=== PATIENT | male | born 1960 | race Caucasian/White ===

== ENCOUNTER 2016-10-02 07:06 | Emergency (ER) | payer OTHER ==
[~2016-10-02 07:06] MED LIST: A/B OTIC 54 MG/15 ML AD; ECOTRIN81 MG PO; FLUTICASONE PRO60 ML INH; METOPROLOL TART50 MG PO; NITROGLYCERIN SL; PRAVASTATIN SOD10 MG PO; [UNRECOGNIZED DRUG - OTHER] SL
[2016-10-02] MEDS ORDERED: BROMFED DM COU118 M1 PO (07:28)
--- NOTE | 2016-10-02 07:29 | ED INFLUENZA/URI COMPLAINT ---
History of Present Illness General Chief Complaint: Dyspnea (COPD, CHF, Other) Stated Complaint: DIFF BREATHING,CONGESTED,POST NASAL DRIP PER PT Source: patient Exam Limitations: no limitations Vital Signs & Intake/Output Vital Signs & Intake/Output Vital Signs Date Time Temp Pulse Resp B/P B/P Pulse O2 O2 Flow FiO2 Mean Ox Delivery Rate 10/02 0723 Room Air Room Air 10/02 0709 96.7 83 16 147/99 98 Room Air Allergies Coded Allergies: MDX - Contrast Media, Iodine Relate (CONTRAST MEDIA, IODINE RELATED) ( Intermediate, RASH 02/17/15) Reconcile Medications Aspirin (Ecotrin) 81 MG ECT 1 TAB PO DAILY HEART HEALTH (Reported) Brompheniramine/Pseudoephed/Dm (Bromfed Dm Cough Syrup) 2 MG-30 MG-10 MG/5 ML SYRUP 10 ML PO Q6P PRN COUGH/COLD SYMPTOMS Metoprolol Tartrate 50 MG TAB 1 TAB PO BID HEART (Reported) Pravastatin (Pravastatin Sodium) 10 MG TAB 1 TAB PO DAILY CHOLESTEROL ( Reported) Triage Note: PT C/O CONGESTION AND POST NASAL DRIP THAT STARTED LAST NIGHT. REPORTS HAVING CHILLS LAST NIGHT WELL, AFEBRILE IN TRIAGE. Triage Nurses Notes Reviewed? yes HPI: Patient presents for evaluation of nasal congestion, postnasal drip force voice and productive cough with occasional nausea and diarrhea that began last night. Patient states he also had a brief episode of chills but denies any associated fever or recent travel. He believes his has been ill recently and she offered him a cough and cold medicine but that didn't seem to help him much. Symptoms are described as moderate, more or less constant but fluctuating in intensity and nothing seems to make it feel better. Past History Travel History Traveled to [place] past 21 day No Medical History Any Pertinent Medical History? see below for history Cardiovascular: CAD, hypertension, hyperlipidemia Hepatic: hepatitis C Endocrine: diabetes History of MRSA: No History of VRE: No History of CDIFF: No Influenza Vaccine: 02/04/15 Surgical History Surgical History: CARDIAC STENT Psychosocial History Who do you live with Spouse What is your primary language Estonian Tobacco Use: Never used Family History Family History, If Any: SISTER Relation not specified for: FH: heart disease Hx Contributory? No Review of Systems Review of Systems Constitutional: Reports: no symptoms. EENTM: Reports: see HPI. Respiratory: Reports: no symptoms. Cardiovascular: Reports: no symptoms. GI: Reports: no symptoms. Genitourinary: Reports: no symptoms. Musculoskeletal: Reports: no symptoms. Skin: Reports: no symptoms. Neurological/Psychological: Reports: no symptoms. Hematologic/Endocrine: Reports: no symptoms. Immunologic/Allergic: Reports: no symptoms. All Other Systems: Reviewed and Negative Physical Exam Physical Exam Ears, Nose, Throat: see below Comments: Gen.: Well-nourished, well-developed, no acute respiratory distress. Hoarse voice. Frequent throat clearing. Head: Normocephalic, atraumatic. Eyes: Normal inspection bilaterally Ears: Normal inspection bilaterally Nose: Normal inspection Throat/mouth : Moist mucosa , no oropharyngeal erythema or soft tissue swelling, managing secretions well Neck: Supple, full range of motion, no goiter, neutral position Heart: Regular rate and rhythm, no murmurs rubs or gallops Lungs: Clear to auscultation bilaterally with normal air entry Chest: Nontender Back: Normal range of motion Abdomen: Soft, nontender, nondistended, normal bowel sounds Extremities: Normal range of motion grossly, equal radial pulses, no cyanosis clubbing or edema Neurologic: Cranial nerves grossly intact, speech is clear Skin: warm and dry Psychiatric: Calm, cooperative, no apparent delusions or hallucinations Lymphatic: No cervical or supraclavicular lymphadenopathy Core Measures Severe Sepsis Present: No Septic Shock Present: No Progress Differential Diagnosis: influenza, pneumonia, pharyngitis, sinusitis, viral syndrome Plan of Care: sx care Initial ED EKG: none Departure Departure Disposition: HOME OR SELF CARE Condition: Stable Clinical Impression Primary Impression: Viral URI with cough Referrals: NIC KEN MD (PCP/Family) Additional Instructions: ibuprofen 600mg every 6 hours as needed for fever, chills, discomfort or muscle aches. bromfed dm as prescribed for cold symptoms. follow up with your PCP in 10 days if not improving. return if any concerns or worsening. Departure Forms: Customer Survey General Discharge Information Prescriptions: Current Visit Scripts Brompheniramine/Pseudoephed/Dm (Bromfed Dm Cough Syrup) 10 ML PO Q6P PRN COUGH/ COLD SYMPTOMS #240 ML
[2016-10-02 07:32] VITALS: BP 161/96
== END 2016-10-02 07:35 ==
LOC: ERH 07:06
DX: J06.9 Acute upper respiratory infection, unspecified (principal)

== ENCOUNTER 2016-11-10 00:58 | Emergency (ER) | payer OTHER ==
[~2016-11-10] VITALS: Ht 177.8 cm; Wt 84.4 kg
[~2016-11-10 00:58] MED LIST changes: +BROMFED DM COU118 M1 PO
--- NOTE | 2016-11-10 01:22 | ED EAR COMPLAINT ---
See Addendum History of Present Illness General Chief Complaint: General Adult Stated Complaint: RIGHT EAR PAIN, SORE THROAT Source: patient Exam Limitations: no limitations Vital Signs & Intake/Output Vital Signs & Intake/Output Vital Signs Date Time Temp Pulse Resp B/P B/P Pulse O2 O2 Flow FiO2 Mean Ox Delivery Rate 11/10 0107 97.3 82 18 156/99 98 Room Air Allergies Coded Allergies: MDX - Contrast Media, Iodine Relate (CONTRAST MEDIA, IODINE RELATED) ( Intermediate, RASH 02/17/15) Reconcile Medications Aspirin (Ecotrin) 81 MG ECT 1 TAB PO DAILY HEART HEALTH (Reported) Brompheniramine/Pseudoephed/Dm (Bromfed Dm Cough Syrup) 2 MG-30 MG-10 MG/5 ML SYRUP 10 ML PO Q6P PRN COUGH/COLD SYMPTOMS Metoprolol Tartrate 50 MG TAB 1 TAB PO BID HEART (Reported) Pravastatin (Pravastatin Sodium) 10 MG TAB 1 TAB PO DAILY CHOLESTEROL ( Reported) Triage Note: PT TO ED C/O CONTINUED RT EAR PAIN THAT GOES DOWN INTO RT SIDE OF THROAT. SEEN HERE FOR SAME 3 WEEKS AGO. 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 WAS SEEN BY DR SIDDIQUI AND WALK IN ON 11/09. HAS USED TH E EAR DROPS THE ONE TIME 4 HRS AGO Triage Nurses Notes Reviewed? yes (FENG MEDINA,KAIA VALERIO) Past History Travel History Traveled to [place] past 21 day No Medical History Cardiovascular: CAD, hypertension, hyperlipidemia Hepatic: hepatitis C Endocrine: diabetes History of MRSA: No History of VRE: No History of CDIFF: No Surgical History Surgical History: CARDIAC STENT Psychosocial History Who do you live with Spouse What is your primary language Divehi Tobacco Use: Quit >30 days ago ETOH Use: denies use Illicit Drug Use: denies illicit drug use Family History Family History, If Any: SISTER Relation not specified for: FH: heart disease (FENG MEDINA,KAIA VALERIO) Progress Plan of Care: Current Medications Sig/Lorna Start time Last Medication Dose Stop Time Status Admin Clindamycin 300 MG ONCE ONE 11/10 129 UNVr (Cleocin 150MG Cap) 11/10 130 Departure Departure Condition: Stable Referrals: NIC KEN MD (PCP/Family) Departure Forms: Customer Survey General Discharge Information (FENG MEDINA,KAIA VALERIO)
[2016-11-10 01:25] VITALS: BP 150/94
[2016-11-10] MEDS ORDERED: CLEOCIN HCL300 M1 PO (01:27)
--- NOTE | 2016-11-10 01:27 | ED THROAT/DENTAL COMPLAINT ---
History of Present Illness General Chief Complaint: General Adult Stated Complaint: RIGHT EAR PAIN, SORE THROAT Source: patient, old records Exam Limitations: no limitations Vital Signs & Intake/Output Vital Signs & Intake/Output Vital Signs Date Time Temp Pulse Resp B/P B/P Pulse O2 O2 Flow FiO2 Mean Ox Delivery Rate 11/10 0125 150/94 11/10 0107 97.3 82 18 156/99 98 Room Air Allergies Coded Allergies: MDX - Contrast Media, Iodine Relate (CONTRAST MEDIA, IODINE RELATED) ( Intermediate, RASH 02/17/15) Reconcile Medications Aspirin (Ecotrin) 81 MG ECT 1 TAB PO DAILY HEART HEALTH (Reported) Brompheniramine/Pseudoephed/Dm (Bromfed Dm Cough Syrup) 2 MG-30 MG-10 MG/5 ML SYRUP 10 ML PO Q6P PRN COUGH/COLD SYMPTOMS Clindamycin HCl (Cleocin HCl) 300 MG CAPSULE 1 CAP PO TID PHARYNGITIS Metoprolol Tartrate 50 MG TAB 1 TAB PO BID HEART (Reported) Pravastatin (Pravastatin Sodium) 10 MG TAB 1 TAB PO DAILY CHOLESTEROL ( Reported) Triage Note: PT TO ED C/O CONTINUED RT EAR PAIN THAT GOES DOWN INTO RT SIDE OF THROAT. SEEN HERE FOR SAME 3 WEEKS AGO. 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 WAS SEEN BY DR SIDDIQUI AND WALK IN ON 11/09. HAS USED TH E EAR DROPS THE ONE TIME 4 HRS AGO Triage Nurses Notes Reviewed? yes HPI: Patient presents with a continued sore throat, pain around his right upper tooth , sinus congestion and ear pain. Symptoms weren't going on for 3 weeks. Patient was seen in the emergency department as well as by his primary care physician. Patient finished a course of Z-Dmitriy. Patient states he had been having fusion chills and low use that Z-Dmitriy however the other symptoms continue. There is no difficulty breathing or swallowing. The pain is constant. There is no aggravating or mitigating factors. Patient could not tell if the pain starts one area and then spread to go from there or if the pain is just diffuse in an up itself. The pain is aching and popping in nature. He rates the pain as 8 out of 10. Patient states that 2 days ago as began have decreased hearing in his right ear. Patient was again seen and diagnosed with otitis externa and put on Ciprodex. Patient use Ciprodex for the first time 4 hours ago and it has not helped opinion. Because back to the emergency room for reevaluation. Past History Travel History Traveled to [place] past 21 day No Medical History Any Pertinent Medical History? see below for history Cardiovascular: CAD, hypertension, hyperlipidemia Hepatic: hepatitis C Endocrine: diabetes History of MRSA: No History of VRE: No History of CDIFF: No Surgical History Surgical History: CARDIAC STENT Psychosocial History Who do you live with Spouse What is your primary language Burmese Tobacco Use: Quit >30 days ago ETOH Use: denies use Illicit Drug Use: denies illicit drug use Family History Family History, If Any: SISTER Relation not specified for: FH: heart disease Hx Contributory? No Review of Systems Review of Systems Constitutional: Reports: no symptoms. EENTM: Reports: see HPI, ear pain, nasal pain, throat pain, mouth pain, tooth pain. Respiratory: Reports: no symptoms. Cardiovascular: Reports: no symptoms. GI: Reports: no symptoms. Musculoskeletal: Reports: no symptoms. Neurological/Psychological: Reports: no symptoms. Immunologic/Allergic: Reports: no symptoms. Physical Exam Physical Exam General Appearance: well developed/nourished, alert, awake Head: atraumatic, normal appearance Eyes: Bilateral: PERRL, EOMI. Ears: Left: canal normal, Tympanic normal. Right: erythema, tenderness. Nose: normal inspection Mouth/Throat: BROKEN TOOTH RIGHT UPPER Neck: lymphadenopathy (R) Cardiovascular/Respiratory: normal breath sounds, normal peripheral pulses, regular rate/rhythm, no respiratory distress Neurologic/Psych: no motor/sensory deficits, awake, alert, oriented x 3, normal gait, normal mood/affect Core Measures ACS in differential dx? No Severe Sepsis Present: No Septic Shock Present: No Progress Differential Diagnosis: carious tooth, epiglottitis, odontogenic abscess, strep pharyngitis, tooth fracture, OTITIS EXTERNA Plan of Care: Orders Procedure Date/time Status THROAT CULTURE W/QUICK STREP 11/10 126 Active Current Medications Sig/Lorna Start time Last Medication Dose Stop Time Status Admin Clindamycin 300 MG ONCE ONE 11/10 129 AC (Cleocin 150MG Cap) 11/10 130 Departure Departure Disposition: HOME OR SELF CARE Condition: Stable Clinical Impression Primary Impression: Pharyngitis Qualifiers: Pharyngitis/tonsillitis etiology: unspecified etiology Qualified Code: J02.9 - Acute pharyngitis, unspecified Secondary Impressions: Broken tooth Qualifiers: Encounter type: initial encounter Fracture type: closed Qualified Code: S02.5XXA - Fracture of tooth (traumatic), initial encounter for closed fracture Otitis externa Qualifiers: Otitis externa type: unspecified type Chronicity: acute Laterality: right Qualified Code: H60.501 - Unspecified acute noninfective otitis externa, right ear Referrals: NIC KEN MD (PCP/Family) Additional Instructions: FOLLOW UP WITH DR. KEN RETURN FOR ANY CONCERNS Departure Forms: Customer Survey General Discharge Information Prescriptions: Current Visit Scripts Clindamycin HCl (Cleocin HCl) 1 CAP PO TID #21 CAP
== END 2016-11-10 01:55 ==
LOC: ERH 00:58
DX: S02.5XXA Fracture of tooth (traumatic), initial encounter for closed fracture (principal); J02.9 Acute pharyngitis, unspecified; H60.91 Unspecified otitis externa, right ear; X58.XXXA Exposure to other specified factors, initial encounter

== ENCOUNTER 2017-12-07 13:50 | Emergency (ER) | payer OTHER ==
[~2017-12-07] VITALS: Ht 177.8 cm; Wt 83.9 kg
[~2017-12-07 13:50] MED LIST changes: +CLEOCIN HCL300 M1 PO
[2017-12-07 13:55] VITALS: BP 155/95
--- NOTE | 2017-12-07 14:10 | ED UPPER/LOWER EXTREMITY COMPL ---
History of Present Illness General Chief Complaint: Lower Extremity Problems Stated Complaint: LIZETTE KNEE PAIN Source: patient Exam Limitations: no limitations Vital Signs & Intake/Output Vital Signs & Intake/Output Vital Signs Date Time Temp Pulse Resp B/P B/P Pulse O2 O2 Flow FiO2 Mean Ox Delivery Rate 12/07 1355 97.0 82 20 155/95 98 Room Air Allergies Coded Allergies: Iodinated Contrast- Oral and IV Dye (Intermediate, RASH 12/07/17) Reconcile Medications Aspirin (Ecotrin) 81 MG ECT 1 TAB PO DAILY HEART HEALTH (Reported) Brompheniramine/Pseudoephed/Dm (Bromfed Dm Cough Syrup) 2 MG-30 MG-10 MG/5 ML SYRUP 10 ML PO Q6P PRN COUGH/COLD SYMPTOMS Clindamycin HCl (Cleocin HCl) 300 MG CAPSULE 1 CAP PO TID PHARYNGITIS Metoprolol Tartrate 50 MG TAB 1 TAB PO BID HEART (Reported) Pravastatin (Pravastatin Sodium) 10 MG TAB 1 TAB PO DAILY CHOLESTEROL ( Reported) Triage Note: PT C/O BILATERAL KNEE PAIN X 3 WEEKS. PT DENIES INJURY. PAIN GETS WORSE THROUGHOUT THE DAY. PT STATES KNEES CLICK AND POP Triage Nurses Notes Reviewed? yes Onset: Gradual Duration: week(s): Timing: recent history Severity: moderate Pain/Injury Location: Bilateral: Knee. HPI: 57yo male with PMH of HTN, DM, lumbar arthritis c/o bilateral knee pain. For the past 3 weeks, pt has had bilteral knee pain that has been increasing in intensity. Pt reports that pain initially started in the medial aspect of his knees and the pain has progressed to wrap around the circumference of the knees bilaterally. Reports that he feels fine for the first 30 minutes in the AM, but pain worsens as day progresses. When standing, pain feels like knives stabbing his knees; while sitting pain feels tight and sore. Pt has increased pain with ambulation. Denies any edema, numbess, tingling, rashes, open sores. Denies any insect bites, but sleeps with his dog. Denies any trauma, strenous exercise. (Coby LOPEZ,Martha Garay) Past History Travel History Traveled to [place] past 21 day No Medical History Any Pertinent Medical History? see below for history Cardiovascular: CAD, hypertension, hyperlipidemia Hepatic: hepatitis C Endocrine: diabetes History of MRSA: No History of VRE: No History of CDIFF: No Surgical History Surgical History: CARDIAC STENT Psychosocial History Who do you live with Spouse What is your primary language Occitan Tobacco Use: Quit >30 days ago ETOH Use: denies use Illicit Drug Use: denies illicit drug use Family History Family History, If Any: SISTER Relation not specified for: FH: heart disease Hx Contributory? No (Martha Cao) Review of Systems Review of Systems Constitutional: Reports: no symptoms. EENTM: Reports: no symptoms. Respiratory: Reports: no symptoms. Cardiovascular: Reports: no symptoms. Gastrointestinal/Abdominal: Reports: no symptoms. Genitourinary: Reports: no symptoms. Musculoskeletal: Reports: see HPI. Skin: Reports: no symptoms. Neurological/Psychological: Reports: no symptoms. Hematologic/Endocrine: Reports: no symptoms. Immunological: Reports: no symptoms. All Other Systems: Reviewed and Negative (Martha Cao) Physical Exam Physical Exam General Appearance: well developed/nourished, no apparent distress, alert, awake Head: atraumatic, normal appearance Eyes: Bilateral: normal appearance. Ears, Nose, Throat: normal pharynx, hearing grossly normal Neck: normal inspection, supple, full range of motion Cardiovascular/Respiratory: regular rate/rhythm Back: normal inspection, vertebral tenderness (lower lumbar region) Shoulder Left: normal range of motion, normal inspection Shoulder Right: normal range of motion, normal inspection Elbow Left: normal range of motion, normal inspection Elbow Right: normal range of motion, normal inspection Hand Left: normal inspection, normal range of motion Hand Right: normal inspection, normal range of motion Leg Left: normal range of motion, normal inspection Leg Right: normal range of motion, normal inspection Hip Left: normal range of motion, normal inspection Hip Right: normal range of motion, normal inspection Knee Left: normal range of motion, normal inspection, pain Knee Ligaments Left: no gross laxity Knee Right: normal range of motion, normal inspection, pain, single crusted lesion to anterior knee with mild erythema Knee Ligaments Right: no gross laxity Foot Left: normal inspection, normal range of motion Foot Right: normal inspection, normal range of motion Lower Extremity Reflexes: 2+: knee (R), knee (L), ankle (R), ankle (L). Neurologic/Tendon: normal sensation, normal motor functions, normal tendon functions, no evidence tendon injury Skin: intact, normal color, warm/dry (Coby LOPEZ,Martha Garay) Progress Differential Diagnosis: cellulitis, contusion, DVT, fracture, septic arthritis, sprain, tendon injury, lyme disease, osteoarthritis Plan of Care: Orders Procedure Date/time Status HIGH SENSITIVITY CRP 12/07 143 Complete COMPREHENSIVE METABOLIC PANEL 12/07 143 Complete CBC WITHOUT DIFFERENTIAL 12/07 143 Complete LYME TITRE 12/07 1430 Active Current Medications Sig/Lorna Start time Last Medication Dose Stop Time Status Admin Ketorolac 30 MG ONCE ONE 12/07 1445 CAN Tromethamine 12/07 1446 (Toradol) Laboratory Tests 12/07/17 1458: Anion Gap 6, Estimated GFR > 60, BUN/Creatinine Ratio 25.7 H, Glucose 221 H, Calcium 9.0, Total Bilirubin 0.6, AST 25, ALT 41, Alkaline Phosphatase 73, C- React Prot High Sens 3.6 H, Total Protein 6.5, Albumin 3.9, Globulin 2.6, Albumin/Globulin Ratio 1.5, CBC w Diff NO MAN DIFF REQ, RBC 5.11, MCV 87.8, MCH 30.6, MCHC 34.8, RDW 13.1, MPV 8.1, Gran % 65.6, Lymphocytes % 22.9, Monocytes % 7.3, Eosinophils % 3.7, Basophils % 0.5, Absolute Granulocytes 4.6, Absolute Lymphocytes 1.6, Absolute Monocytes 0.5, Absolute Eosinophils 0.3, Absolute Basophils 0, Lyme Disease Antibody Pending I offered the patient toradol here in the ED for pain relief however he declines. Patient's xrays are stable, no acute abnormalities. He is ambulatory here in the ED without difficulty. CRP is mildly elevated however this is nonspecific. Lyme titer is pending. The patient has an appointment with his primary care doctor scheduled for tomorrow. He will follow-up with his PCP of his symptoms. He will return here with worsening symptoms or concerns. Patient agrees with plan of care. I offered pain medication prescription however he declines. Diagnostic Imaging: Viewed by Me: Radiology Read. Discussed w/RAD: Radiology Read. Radiology Impression: PATIENT: JERI LOZANO PRESENT AGE: 57 PATIENT ACCOUNT NO: [id number] : 61 LOCATION: [facility] ORDERING PHYSICIAN: Martha LOPEZ SERVICE DATE: 12/07/17 EXAM TYPE: RAD - XRY-KNEE COMPLETE RIGHT EXAMINATION: XR KNEE, RIGHT CLINICAL INFORMATION: Bilateral knee pain. COMPARISON: None TECHNIQUE: Four views of the right knee. FINDINGS: Bones and soft tissues are normal. No fracture or joint effusion. Alignment is anatomic. Joint spaces are well maintained. No abnormal soft tissue calcification. There are surgical clips in the upper calf soft tissues at the medial side of the calf. IMPRESSION: Normal right knee. DICTATED BY: Jordan Perdue MD DATE/TIME DICTATED:12/07/171503 SPLITTING MACHINE OPERATOR:CUNHA DATE/TIME TRANSCRIBED:12/07/171503 CONFIDENTIAL, DO NOT COPY WITHOUT APPROPRIATE AUTHORIZATION. <Electronically signed in Other Vendor System> SIGNED BY: Jordan Perdue MD 12/07/171507, PATIENT: JERI LOZANO PRESENT AGE: 57 PATIENT ACCOUNT NO: [id number] : 62 LOCATION: [facility] ORDERING PHYSICIAN: Martha LOPEZ SERVICE DATE: 12/07/17 EXAM TYPE: RAD - XRY-KNEE COMPLETE LEFT EXAMINATION: XR KNEE, LEFT CLINICAL INFORMATION: Bilateral knee pain. COMPARISON: None TECHNIQUE: Four views of the left knee. FINDINGS: Bones and soft tissues are normal. No fracture or joint effusion. Alignment is anatomic. Joint spaces are well maintained. No abnormal soft tissue calcification. IMPRESSION: Normal left knee. DICTATED BY: Jordan Perdue MD DATE/TIME DICTATED:12/07/171502 SPLITTING MACHINE OPERATOR:[email or web address] DATE/TIME TRANSCRIBED:12/07/171502 CONFIDENTIAL, DO NOT COPY WITHOUT APPROPRIATE AUTHORIZATION. <Electronically signed in Other Vendor System> SIGNED BY: Jordan Perdue MD 12/07/179 (Coby LOPEZ,Martha Garay) Departure Departure Disposition: HOME OR SELF CARE Condition: Stable Clinical Impression Primary Impression: Bilateral knee pain Qualifiers: Chronicity: acute Qualified Codes: M25.561 - Pain in right knee; M25.562 - Pain in left knee Referrals: Anthony Shannon MD (PCP/Family) Additional Instructions: Follow up with your primary care doctor tomorrow as scheduled. Try tylenol for pain. Return if you have worsening symptoms or concerns. Please note that there might be incidental findings in your evaluation that are unrelated to the current emergency department visit. Please notify your primary care doctor about this emergency department visit in order to obtain and review all of the testing performed so that these incidental findings can be monitored as needed. If you had an x-ray performed, please understand that some fractures may not be seen on the initial set of x-rays. If your symptoms persist you might need a repeat set of x-rays to check for such a fracture. If you had a laceration evaluated, please understand that foreign bodies such as glass or wood may not be visible to the naked eye or on plain x-rays. If the wound becomes red, swollen, increasingly more painful or if there is any drainage from the wound, please have it reevaluated by a physician for the possibility of a retained foreign body. If you're unable to follow up as outlined in the discharge instructions please return to the emergency department. Thank you for choosing the [facility] Emergency Department for your care. It was a pleasure to serve you today. Departure Forms: Customer Survey General Discharge Information (Coby LOPEZ,Martha Garay) PA/DIGITAL STRATEGIST Co-Sign Statement Statement: ED Attending supervision documentation- [] I saw and evaluated the patient. I have also reviewed all the pertinent lab results and diagnostic results. I agree with the findings and the plan of care as documented in the PA's/DIGITAL STRATEGIST's documentation. [X] I have reviewed the ED Record and agree with the PA's/DIGITAL STRATEGIST's documentation. [] Additions or exceptions (if any) to the PAs/DIGITAL STRATEGIST's note and plan are summarized below: [] (Moises MEDINA,Adam Miller)
--- NOTE | 2017-12-07 15:07 | RADIOLOGY REPORT ---
EXAMINATION: XR KNEE, LEFT CLINICAL INFORMATION: Bilateral knee pain. COMPARISON: None TECHNIQUE: Four views of the left knee. FINDINGS: Bones and soft tissues are normal. No fracture or joint effusion. Alignment is anatomic. Joint spaces are well maintained. No abnormal soft tissue calcification. IMPRESSION: Normal left knee.
--- NOTE | 2017-12-07 15:08 | RADIOLOGY REPORT ---
EXAMINATION: XR KNEE, RIGHT CLINICAL INFORMATION: Bilateral knee pain. COMPARISON: None TECHNIQUE: Four views of the right knee. FINDINGS: Bones and soft tissues are normal. No fracture or joint effusion. Alignment is anatomic. Joint spaces are well maintained. No abnormal soft tissue calcification. There are surgical clips in the upper calf soft tissues at the medial side of the calf. IMPRESSION: Normal right knee.
[2017-12-07 15:18] LABS: ABSOLUTE BASOPHIL COUNT 0 /CUMM (0.0-0.2); ABSOLUTE EOSINOPHIL COUNT 0.3 /CUMM (0.0-0.7); ABSOLUTE GRANULOCYTE CT 4.6 /CUMM (1.4-6.5); ABSOLUTE LYMPH COUNT 1.6 /CUMM (1.2-3.4); ABSOLUTE MONOCYTE COUNT 0.5 /CUMM (0.10-0.60); BASOPHIL % 0.5 % (0.0-2.0); EOSINOPHIL % 3.7 % (0-5); GRANULOCYTE % 65.6 % (42.2-75.2); HEMATOCRIT 44.9 % (42-52); MEAN CORPUSCULAR HGB 30.6 PG (27.0-31.0); MEAN CORPUSCULAR HGB CONC 34.8 G/DL (33.0-37.0); MEAN CORPUSCULAR VOLUME 87.8 FL (80.0-94.0); MEAN PLATELET VOLUME 8.1 FL (7.4-10.4); PLATELET COUNT 240 /CUMM (130-400); RBC DISTRIBUTION WIDTH 13.1 % (11.5-14.5); RED BLOOD CELL CT 5.11 /CUMM (4.70-6.10); WHITE BLOOD CELL COUNT 7.1 /CUMM (4.8-10.8)
== END 2017-12-07 15:55 ==
LOC: ERH 13:50
PROVIDERS: Physician Assistant
DX: M25.561 Pain in right knee (principal); M25.562 Pain in left knee
CPT/HCPCS: 86618; 73562-LT; 73562-RT